=== PATIENT | female | born 1975 | race Hispanic/Latino ===

== ENCOUNTER 2018-12-15 09:06 | Outpatient (CLI) | payer BC ==
--- NOTE | 2018-12-15 10:08 | Mammography Report ---
BILATERAL DIGITAL DIAGNOSTIC MAMMOGRAM : 12/15/18 09:06:00 CLINICAL: Recalled for bilateral asymmetries. COMPARISON:12/03/18 screening FINDINGS: Bilateral ML and spot compression views were performed. Satisfactory effacement of asymmetries. No mass, architectural distortion or suspicious calcifications. IMPRESSION: No mammographic evidence of malignancy. BI-RADS CATEGORY: 1 -- Negative RECOMMENDATION: Routine mammographic screening in one year. ACR BI-RADS MAMMOGRAPHIC CODES: 0 = Needs additional imaging evaluation; 1 = Negative; 2 = Benign; 3 = Probably benign; 4 = Suspicious; 5 = Malignant; 6 = Known biopsy-proven malignancy COMMENT: 1. Dense breast tissue, i.e., adenosis, fibrocystic changes, etc., may obscure an underlying neoplasm. 2. Approximately 10% of cancers are not detected with mammography. 3. A negative mammography report should not delay biopsy if a clinically suspicious mass is present. COMMENT: Patient follow-up letters are generated via our [email or web address] application.
== END 2018-12-15 09:07 | disposition home or self-care (01) ==
LOC: SPVWC 09:06
PROVIDERS: ATTEND Obstetrics & Gynecology
DX: N64.89 Other specified disorders of breast (principal)
CPT/HCPCS: 77066